=== PATIENT | female | born 1960 | race Caucasian/White ===

== ENCOUNTER → 2016-11-24 | Outpatient (CLI) | payer OTHER, MEDICAID ==
[2012-10-22 22:33] VITALS: BP 113/80
--- NOTE | 2016-11-25 11:49 | MG ---
HISTORY: SCREENING Comparison: November 18, 2011 and October 24, 2013 FINDINGS: Bilateral CC and MLO projections of the right and left breast were obtained. Heterogeneously dense fibroglandular tissue is seen to be present without suspicious interval change. No significant arch itectural distortion, mass or clustered microcalcifications can be observed to suggest malignancy. No skin thickening or nipple retraction is appreciated. No pathological lymphadenopathy can be chester ntified. IMPRESSION: NO RADIOGRAPHIC EVIDENCE OF MALIGNANCY. ACR CATEGORY I - NEGATIVE EXAM. FOLLOW-UP EXAM 1 YEAR. Diagnostic CAD was utilized and reviewed. * 0 (ZERO) - ASSESSMENT INCOMPLETE; ADDITIONAL IMAGING IS NEEDED. * / (ONE) - NEGATIVE. * 2/II (TWO) - BENIGN FINDINGS. * 3/III (THREE) - PROBABLY BENIGN FINDING; SHORT INTERVAL FOLLOW-UP SUGGESTED. * 4/IV (FOUR) - SUSPICIOUS ABNORMALITY; BIOPSY SHOULD BE CONSIDERED. * 5/V (FIVE) - HIGHLY SUSPICIOUS OF MALIGNANCY; BIOPSY SHOULD BE PERFORMED. A NEGATIVE X-RAY REPORT SHOULD NOT DELAY BIOPSY IF A DOMINANT OR CLINICALLY SUSPICIOUS MASS IS PRESENT; 4 TO 8 PERCENT OF CANCERS ARE NOT IDENTIFIED BY X-RAY. A NEG ATIVE REPORT MAY REINFORCE THE CLINICAL IMPRESSION. ADENOSIS AND DENSE BREASTS MAY OBSCURE AN UNDER LYING NEOPLASM. Reported By:
== END ==
LOC: RAD 13:54
PROVIDERS: ATTEND Specialist
DX: Z12.31 Encounter for screening mammogram for malignant neoplasm of breast (principal)
CPT/HCPCS: 77067

== ENCOUNTER 2019-09-12 18:02 | Observation (INO) ==
[2019-09-12] MEDS ORDERED: ZOFRAN INJ 4 MG VIAL IVP PRN (23:49)
[2019-09-12] MEDS ORDERED: NS 1000 ML 1,000 ML IV SCH (23:49)
[2019-09-13 00:09] LABS: BASOPHILS % (AUTO) 0.5 % (0.2-1.0); EOSINOPHILS % (AUTO) 0.1 % (0.9-2.9); HEMATOCRIT 41.9 % (36.0-47.0); MEAN CORPUSCULAR HEMOGLOBIN 30.1 pg (27.0-34.0); MEAN CORPUSCULAR HGB CONC 35.9 g/dL (33.0-35.0); MEAN PLATELET VOLUME 8.7 fL (7.4-11.0); MONOCYTES # (AUTO) 0.9 x10^3/uL (0.3-0.8); MONOCYTES % (AUTO) 13.1 % (0.0-13.0); NEUTROPHILS # (AUTO) 3.8 x10^3/uL (2.2-4.8); NEUTROPHILS % (AUTO) 56.3 % (42.0-75.0); PLATELET COUNT 242 X10^3/uL (150.0-450.0); RED BLOOD COUNT 4.98 X10^6/uL (3.5-5.4); RED CELL DISTRIBUTION WIDTH 13.6 % (11.6-16.5); WHITE BLOOD COUNT 6.8 X10^3/uL (3.6-10.0)
[2019-09-13 00:20] LABS: ALANINE AMINOTRANSFERASE 33 Units/L (12-78); ALBUMIN 3.6 g/dL (3.4-5.0); ALKALINE PHOSPHATASE 30 Units/L (46-116); ASPARTATE AMINO TRANSFERASE 28 Units/L (15-37); BLOOD UREA NITROGEN 7 mg/dL (7-18); CALCIUM 8.8 mg/dL (8.5-10.1); CARBON DIOXIDE 32.3 mmol/L (21-32); CHLORIDE 98 mmol/L (98-107); CREATININE 0.75 mg/dL (0.55-1.02); SODIUM 138 mmol/L (136-145); TOTAL PROTEIN 7.3 g/dL (6.4-8.2); eGFR NON BLACK RACES > 60 (>60)
[2019-09-13] MEDS ORDERED: POTASSIUM CHL 60 MEQ/NS 0.45% 500 ML IV PRN (00:47)
[2019-09-13] MEDS ORDERED: POTASSIUM CHLORIDE LIQ 20 MEQ UDC PO PRN (00:47)
[2019-09-13] MEDS ORDERED: MICRO K EXTEN CAP 10 MEQ PO PRN (00:47)
[2019-09-13] MEDS ORDERED: POTASSIUM CHL 40 MEQ/NS 0.45% 500 ML IV PRN (00:47)
[2019-09-13] MEDS: K-RIDER 10 MEQ/NS 100 ML 10 MEQ/100 ML BAG IV PRN ×6 (01:00→09:51)
[2019-09-13 01:55] VITALS: BMI 28.1
[2019-09-13] MEDS ORDERED: K-RIDER 10 MEQ/NS 100 ML 10 MEQ/100 ML BAG IV ONE (02:11)
[2019-09-13] MEDS ORDERED: NS + KCL 20 MEQ/L 1,000 ML IV ONE (02:20)
[2019-09-13] MEDS: NS + KCL 20 MEQ/L 1,000 ML IV SCH ×2 (02:50→16:35)
[2019-09-13 06:06] LABS: BILIRUBIN,URINE NEGATIVE (NEGATIVE); BLOOD/HEMOGLOBIN,URINE NEGATIVE (NEGATIVE); GLUCOSE, URINE NEGATIVE (NEGATIVE); KETONES,URINE 3+ (NEGATIVE); LEUKOCYTE ESTERASE ,URINE NEGATIVE (NEGATIVE); NITRITES,URINE NEGATIVE (NEGATIVE); PROTEIN,URINE NEGATIVE (NEGATIVE); UROBILINOGEN,URINE NORMAL (NORMAL)
[2019-09-13 06:06] LABS: BASOPHILS % (AUTO) 0.6 % (0.2-1.0); EOSINOPHILS % (AUTO) 0.2 % (0.9-2.9); HEMATOCRIT 37.7 % (36.0-47.0); HEMOGLOBIN 13.5 g/dL (12.0-16.0); LYMPHOCYTES # (AUTO) 1.9 X10^3/uL (1.3-2.9); LYMPHOCYTES % (AUTO) 38.3 % (21.0-51.0); MEAN CORPUSCULAR HEMOGLOBIN 30.2 pg (27.0-34.0); MEAN CORPUSCULAR HGB CONC 35.9 g/dL (33.0-35.0); MEAN CORPUSCULAR VOLUME 84.2 fL (80.0-100.0); MEAN PLATELET VOLUME 8.6 fL (7.4-11.0); MONOCYTES # (AUTO) 0.7 x10^3/uL (0.3-0.8); MONOCYTES % (AUTO) 13.8 % (0.0-13.0); NEUTROPHILS # (AUTO) 2.4 x10^3/uL (2.2-4.8); NEUTROPHILS % (AUTO) 47.1 % (42.0-75.0); PLATELET COUNT 196 X10^3/uL (150.0-450.0); RED BLOOD COUNT 4.48 X10^6/uL (3.5-5.4); RED CELL DISTRIBUTION WIDTH 13.6 % (11.6-16.5)
[2019-09-13 06:16] LABS: ALANINE AMINOTRANSFERASE 28 Units/L (12-78); ALBUMIN 3.1 g/dL (3.4-5.0); ALKALINE PHOSPHATASE 25 Units/L (46-116); ASPARTATE AMINO TRANSFERASE 26 Units/L (15-37); BLOOD UREA NITROGEN 5 mg/dL (7-18); CALCIUM 8.1 mg/dL (8.5-10.1); CHLORIDE 99 mmol/L (98-107); COR CA(FOR HYPOALB) 8.8 mg/dL (8.5-10.1); CREATININE 0.63 mg/dL (0.55-1.02); SODIUM 137 mmol/L (136-145); TOTAL PROTEIN 6.4 g/dL (6.4-8.2); eGFR NON BLACK RACES > 60 (>60)
[2019-09-13 06:50] LABS: APPEARANCE,URINE CLEAR (CLEAR); COLOR,URINE YELLOW (YELLOW)
[2019-09-13] MEDS: MAGNESIUM SULFATE 1 GRAM/100 mL PREMIX 1 GM/100 ML BAG IV PRN ×2 (08:18→09:31)
[2019-09-13] MEDS: LOVENOX INJ 40 MG SYR SC SCH (11:30)
--- NOTE | 2019-09-13 12:54 | US ---
HISTORYRUQ PAINSTUDYUltrasound of the gallbladderCOMPARISONCT scan of the abdomen and pelvis done 09/11/2019.TECHNIQUEGrayscale, duplex and color Doppler ultrasound of the right upper abdominal quadrant is provided.FINDINGSLiver is normal size with normal echogenicity. No hepatic mass or biliary ductal ectasia is seen. Color and duplex Doppler flow reveal hepatopetal portal venous flow. Color Doppler studies of hepatic artery are normal. Common bile duct is normal measuring 1.8 millimeters in diameter.The gallbladder is well seen. No evidence of gallstone, gallbladder wall thickening or pericholecystic fluid is seen.The right kidney is normal measuring 10.2 centimeters length. Cortical thickness is 1.65 centimeters. Resistive index is 0.58, which is normal.Normal pancreas.Normal IVCIMPRESSIONNormal gallbladder ultrasound.Electronically signed by: KARY GIBBONS (Sep 13, 2019 12:53:33)
--- NOTE | 2019-09-13 16:55 | DR.CONSULT ---
Consult - Consultation for Day of: Date: 09/13/19 - Chief Complaint Chief Complaint: Patient referred for nausea, vomiting and abdominal pain. Patient with cerbral palsy, caregiver states she has been holding her pper abdomen and vomiting. - History of Present Illness History of Present Illness: Patient is a 59 yo female who was referred for nausea, vomiting and abdominal pain. Patient with cerbral palsy, caregiver states she has been holding her upper abdomen and vomiting for 1 week, states that she had diarrhea yesterday with dark stool but has been taking peptobismol. Caregiver has not noticed her having any dysphagia, dyspepsia, constpiation or hematochezia. Patient has never had a colon or EGD. Gallbladder US negative, Abdomen and pelvis CT negative. Hgb 13.5, Hct 37.7, Plt 196, K 2.6, BUN 5, creatinine 0.63, T. Bili 0.6, AST 26, ALT 28, ALP 25. - Past Medical History Past Medical History: Hypertension - Past Surgical History Surgical History: Hysterectomy - Family History Family Medical History: Diabetes Mellitus, Cancer, [place], Coronary Artery Disease, Heart Failure, Sudden Cardiac , Hypertension - Social History Does patient currently use any type of tobacco product: No Have you used tobacco products in the last 12 months: No Type of Tobacco Use: None Alcohol Use: None Drug Use: None - Medications Home Medications: No Known Drug Allergies Allergy (Verified 09/11/19 14:53) CONTINUE taking the following medications atenolol-chlorthalidone [Tenoretic 50] 1 tab PO ONCE 09/13/19 [History] divalproex 500 mg PO DAILY 09/13/19 [History] esomeprazole magnesium 40 mg PO DAILY 09/13/19 [History] estradiol 2 mg PO DAILY 09/13/19 [History] levothyroxine 0.075 mcg PO DAILY 09/13/19 [History] meclizine 25 mg PO DAILY PRN 09/13/19 [History] montelukast 10 mg PO DAILY 09/13/19 [History] potassium chloride 10 meq PO DAILY 09/13/19 [History] - Review of Systems Gastrointestinal: Vomiting, Abdominal Pain (Epigastric). denies: Nausea, Diarrhea, Constipation, Melena, Hematochezia, Other - Physical Exam Vital Signs: Temperature 98.2 F Pulse Rate [Radial] 70 Respiratory Rate 16 Blood Pressure [Right Arm] 126/59 Blood Pressure [Left Arm] 122/79 O2 Sat by Pulse Oximetry 99 Oriented: Normal Eyes: Normal Ear: Normal Nose: Normal Throat: Normal Respiratory: Clear Throughout Cardiovascular: Normal Auscultation: Bowel Sounds: Normal Palpation: Normal, Other (no distended). negative: Spleen Enlarged, Liver Enlarged, Mass Pulsatile Tenderness: Epigastric Skin: Normal Musculoskeletal: Normal Psychiatric: Normal Mood Description: Calm Affect: Normal Speech Pattern: Clear, Appropriate - Plan Plan: Assessment. 1. epigastric pain, vomiting. Plan. 1. EGD on , Protonix IV, Zofran PRN. Plan reviewed with Dr. Peraza - Allergies Allergies/Adverse Reactions: Allergies Allergy/AdvReac Type Severity Reaction Status Date / Time No Known Drug Allergies Allergy Verified 09/11/19 14:53
[2019-09-13] MEDS: LEVSIN/MAALOX/LIDOC VISC PO PRN ×2 (18:33→22:00)
--- NOTE | 2019-09-13 21:16 | DR.H&P ---
H&P - History & Physical for Day of: H&P Date: 09/12/19 - Chief Complaint Chief Complaint: RUQ PAIN, NAUSEA AND VOMITING - History of Present Illness History of Present Illness: IS A 59 YEAR OLD PATIENT OF OURS WHO PRESENTED TO THE HOSPITAL A DIRECT ADMISSION DUE TO COMPLAINTS OF RUQ PAIN AND INTRACTABLE NAUSEA AND VOMITING. SYMPTOMS STARTED ON WEEK AGO AND HAVE PROGRESSIVELY GOTTEN WORSE. PMH INCLUDES CEREBRAL PALSY, HTN, HYPOTHYROIDISM, DEPRESSION, AND INTELLECTUAL DISABILITIES. ON ARRIVAL TO THE HOSPITAL, VITALS WERE 97.5-81-20-97%-119/76. LABS WERE OBTAINED. ABNORMAL LAB VALUES INCLUDE THE FOLLOWING: POTASSIUM 2.3, CARBON DIOXIDE 32.3, GLUCOSE 107, MAGNESIUM 1.6, ALK PHOS 30. A URINALYSIS WAS OBTAINED AND IS UNREMARKABLE. A GALLBLADDER US WAS OBTAINED AND IS NORMAL. WE PLAN TO OBTAIN A HIDA SCAN TODAY. SHE WAS STARTED ON NS WITH 20MEQ KCL AT 80 ML/HR, THE POTASSIUM AND MAGNESIUM PROTOCOLS, LOVENOX 40MG SC DAILY, GI COCKTAIL, ZOFRAN 4MG IV Q4H PRN, AND PROTONIX 40MG IV BID. WE WILL CONTINUE WITH [facility] PLAN OF CARE TODAY. OTHERWISE, WE WILL FOLLOW UP WITH AM LABS AND CONTINUE TO MONITOR. - Past Medical History Past Medical History: Hypertension - Past Surgical History Surgical History: Hysterectomy - Family History Family Medical History: Diabetes Mellitus, Cancer, [place], Coronary Artery Disease, Heart Failure, Sudden Cardiac , Hypertension - Social History Does patient currently use any type of tobacco product: No Have you used tobacco products in the last 12 months: No Type of Tobacco Use: None Alcohol Use: None Drug Use: None - Medications Home Medications: No Known Drug Allergies Allergy (Verified 09/11/19 14:53) CONTINUE taking the following medications atenolol-chlorthalidone [Tenoretic 50] 1 tab PO ONCE 09/13/19 [History] divalproex 500 mg PO DAILY 09/13/19 [History] esomeprazole magnesium 40 mg PO DAILY 09/13/19 [History] estradiol 2 mg PO DAILY 09/13/19 [History] levothyroxine 0.075 mcg PO DAILY 09/13/19 [History] meclizine 25 mg PO DAILY PRN 09/13/19 [History] montelukast 10 mg PO DAILY 09/13/19 [History] potassium chloride 10 meq PO DAILY 09/13/19 [History] - Review of Systems Constitutional: Weakness Eyes: No Symptoms Reported ENT: No Symptoms Reported Respiratory: No Symptoms Reported Cardiovascular: No Symptoms Reported Gastrointestinal: See HPI, Nausea, Vomiting, Abdominal Pain Genitourinary: No Symptoms Reported Musculoskeletal: No Symptoms Reported Skin: No Symptoms Reported Neurological: See HPI, Weakness - Physical Exam Vital Signs: Temperature 97.5 F Pulse Rate [Radial] 85 Respiratory Rate 16 Blood Pressure [Right Arm] 110/65 Blood Pressure [Left Arm] 122/79 O2 Sat by Pulse Oximetry 97 Oriented: Person Eyes: Normal Ear: Normal Nose: Normal Throat: Normal Respiratory: Diminished Throughout Cardiovascular: Normal. negative: S3, S4, Murmur, Edema : Normal Auscultation: Bowel Sounds: Normal Palpation: Normal Tenderness: RUQ, Moderate. negative: Rebound, Guarding, Rigidity Skin: Normal Musculoskeletal: Normal Psychiatric: Normal Mood Description: Calm Affect: Normal Speech Pattern: Clear - Assessment/Plan (1) RUQ abdominal pain Status: Acute Plan: ADMIT, NS WITH 20MEQ KCL AT 80 ML/HR, THE POTASSIUM AND MAGNESIUM PROTOCOLS, LOVENOX 40MG SC DAILY, GI COCKTAIL, ZOFRAN 4MG IV Q4H PRN, AND PROTONIX 40MG IV BID, OBTAIN HIDA SCAN (2) Nausea and vomiting in adult patient Status: Acute - Allergies Allergies/Adverse Reactions: Allergies Allergy/AdvReac Type Severity Reaction Status Date / Time No Known Drug Allergies Allergy Verified 09/11/19 14:53
[2019-09-13] MEDS: PROTONIX INJ 40 MG VIAL IVP SCH (21:59)
[2019-09-13] MEDS: KLOR-CON PO PRN (23:55)
[2019-09-14] MEDS: NS + KCL 20 MEQ/L 1,000 ML IV SCH ×3 (04:41→20:30)
[2019-09-14 06:07] LABS: ALANINE AMINOTRANSFERASE 32 Units/L (12-78); ALBUMIN 2.9 g/dL (3.4-5.0); ALKALINE PHOSPHATASE 38 Units/L (46-116); ASPARTATE AMINO TRANSFERASE 27 Units/L (15-37); BLOOD UREA NITROGEN 2 mg/dL (7-18); CALCIUM 7.9 mg/dL (8.5-10.1); CARBON DIOXIDE 30.2 mmol/L (21-32); CHLORIDE 103 mmol/L (98-107); COR CA(FOR HYPOALB) 8.8 mg/dL (8.5-10.1); CREATININE 0.54 mg/dL (0.55-1.02); MAGNESIUM 1.5 mg/dL (1.7-2.9); SODIUM 138 mmol/L (136-145); TOTAL PROTEIN 6.1 g/dL (6.4-8.2); eGFR NON BLACK RACES > 60 (>60)
[2019-09-14 06:11] LABS: BASOPHILS % (AUTO) 0.8 % (0.2-1.0); EOSINOPHILS % (AUTO) 0.2 % (0.9-2.9); HEMATOCRIT 37.4 % (36.0-47.0); HEMOGLOBIN 13.4 g/dL (12.0-16.0); LYMPHOCYTES # (AUTO) 1.6 X10^3/uL (1.3-2.9); LYMPHOCYTES % (AUTO) 36.4 % (21.0-51.0); MEAN CORPUSCULAR HEMOGLOBIN 30.3 pg (27.0-34.0); MEAN CORPUSCULAR HGB CONC 35.9 g/dL (33.0-35.0); MEAN CORPUSCULAR VOLUME 84.5 fL (80.0-100.0); MEAN PLATELET VOLUME 8.5 fL (7.4-11.0); MONOCYTES # (AUTO) 0.5 x10^3/uL (0.3-0.8); MONOCYTES % (AUTO) 10.5 % (0.0-13.0); NEUTROPHILS # (AUTO) 2.3 x10^3/uL (2.2-4.8); NEUTROPHILS % (AUTO) 52.1 % (42.0-75.0); PLATELET COUNT 189 X10^3/uL (150.0-450.0); RED BLOOD COUNT 4.43 X10^6/uL (3.5-5.4); RED CELL DISTRIBUTION WIDTH 13.7 % (11.6-16.5); WHITE BLOOD COUNT 4.4 X10^3/uL (3.6-10.0)
[2019-09-14] MEDS: PROTONIX INJ 40 MG VIAL IVP SCH ×2 (09:50→21:36)
--- NOTE | 2019-09-14 14:51 | NM ---
HISTORYRight upper quadrant pain, nausea, vomitingSTUDYHIDA/HEPATOBILIARY SCAN W/EFTechnique: Patient received intravenous injection of 5.4 millicuries technetium 99 M Choletec. Sequential images of the right upper quadrant were obtained. The patient then received a fatty meal. The right upper quadrant was imaged and a time activity curve plotted.COMPARISONNoneFINDINGSThere is good visualization of the hepatic parenchyma, gallbladder, biliary tree and free passage of tracer into the duodenum. Gallbladder ejection fraction was 0 percent at 30 minutes which is low (normal greater than 35 percent )IMPRESSIONNormal biliary scanLow gallbladder ejection fraction at 30 minute 0 percentElectronically signed by: JOVI DOWELL (Sep 14, 2019 14:49:21)
[2019-09-14] MEDS: LOVENOX INJ 40 MG SYR SC SCH (15:00)
[2019-09-14] MEDS: K-DUR TAB 20 MEQ PO PRN ×2 (15:12→18:35)
[2019-09-14 17:10] LABS: CRYPTOSPORIDIUM PARVUM ANTIGEN NEGATIVE (NEGATIVE); GIARDIA LAMBLIA ANTIGEN NEGATIVE (NEGATIVE)
[2019-09-14] MEDS ORDERED: ANTIVERT TAB 25 MG PO PRN (19:11)
[2019-09-14] MEDS ORDERED: AMBIEN PO PRN (20:46)
[2019-09-14] MEDS: DEPAKOTE ER PO SCH (21:35)
[2019-09-14] MEDS: MAGNESIUM SULFATE 1 GRAM/100 mL PREMIX 1 GM/100 ML BAG IV PRN ×2 (21:39→22:00)
[2019-09-14] MEDS: KLOR-CON PO PRN ×2 (21:39→21:40)
[2019-09-14] MEDS ORDERED: RESTORIL CAP 15 MG PO ONE (21:43)
[2019-09-15] MEDS ORDERED: SYNTHROID 75 mcg TAB PO SCH (06:00)
[2019-09-15 06:07] LABS: BASOPHILS % (AUTO) 0.7 % (0.2-1.0); EOSINOPHILS % (AUTO) 0.4 % (0.9-2.9); HEMATOCRIT 36.4 % (36.0-47.0); HEMOGLOBIN 12.9 g/dL (12.0-16.0); LYMPHOCYTES # (AUTO) 1.9 X10^3/uL (1.3-2.9); LYMPHOCYTES % (AUTO) 45.2 % (21.0-51.0); MEAN CORPUSCULAR HEMOGLOBIN 30.3 pg (27.0-34.0); MEAN CORPUSCULAR HGB CONC 35.4 g/dL (33.0-35.0); MEAN CORPUSCULAR VOLUME 85.6 fL (80.0-100.0); MEAN PLATELET VOLUME 8.5 fL (7.4-11.0); MONOCYTES # (AUTO) 0.5 x10^3/uL (0.3-0.8); MONOCYTES % (AUTO) 10.8 % (0.0-13.0); NEUTROPHILS # (AUTO) 1.8 x10^3/uL (2.2-4.8); NEUTROPHILS % (AUTO) 42.9 % (42.0-75.0); PLATELET COUNT 181 X10^3/uL (150.0-450.0); RED BLOOD COUNT 4.25 X10^6/uL (3.5-5.4); RED CELL DISTRIBUTION WIDTH 13.8 % (11.6-16.5); WHITE BLOOD COUNT 4.2 X10^3/uL (3.6-10.0)
[2019-09-15 06:23] LABS: ALANINE AMINOTRANSFERASE 24 Units/L (12-78); ALBUMIN 2.8 g/dL (3.4-5.0); ALKALINE PHOSPHATASE 36 Units/L (46-116); ASPARTATE AMINO TRANSFERASE 19 Units/L (15-37); BLOOD UREA NITROGEN 1 mg/dL (7-18); CALCIUM 8.1 mg/dL (8.5-10.1); CARBON DIOXIDE 27.9 mmol/L (21-32); CHLORIDE 106 mmol/L (98-107); COR CA(FOR HYPOALB) 9.1 mg/dL (8.5-10.1); CREATININE 0.54 mg/dL (0.55-1.02); MAGNESIUM 1.7 mg/dL (1.7-2.9); SODIUM 138 mmol/L (136-145); TOTAL PROTEIN 5.9 g/dL (6.4-8.2); eGFR NON BLACK RACES > 60 (>60)
[2019-09-15] MEDS ORDERED: DIPRIVAN VIAL 20 ML ONE (08:53)
[2019-09-15] MEDS ORDERED: NexIUM PO SCH (09:00)
[2019-09-15] MEDS ORDERED: MICRO K EXTEN CAP 10 MEQ PO SCH (09:00)
[2019-09-15] MEDS ORDERED: SINGULAIR TAB 10 MG PO SCH (09:00)
[2019-09-15] MEDS ORDERED: ESTRACE PO SCH (09:00)
[2019-09-15] MEDS: NS + KCL 20 MEQ/L 1,000 ML IV SCH (09:22)
[2019-09-15] MEDS: DEPAKOTE ER PO SCH (10:10)
[2019-09-15] MEDS: LOVENOX INJ 40 MG SYR SC SCH (10:11)
[2019-09-15] MEDS: MAGNESIUM SULFATE 1 GRAM/100 mL PREMIX 1 GM/100 ML BAG IV PRN ×2 (10:13→11:27)
[2019-09-15] MEDS: PROTONIX INJ 40 MG VIAL IVP SCH (10:13)
[2019-09-15] MEDS ORDERED: STERILE WATER IRRIGATION IR ONE (10:27)
[2019-09-15 12:19] VITALS: BP 132/70
== END 2019-09-15 13:45 | disposition home or self-care (01) ==
LOC: OBS
PROVIDERS: ADMIT Internal Medicine; ATTEND Internal Medicine
DX: E87.6 Hypokalemia; R10.13 Epigastric pain; K20.9 Esophagitis, unspecified; R10.11 Right upper quadrant pain; K29.70 Gastritis, unspecified, without bleeding; R11.2 Nausea with vomiting, unspecified; B96.81 Helicobacter pylori [H. pylori] as the cause of diseases classified elsewhere; K44.9 Diaphragmatic hernia without obstruction or gangrene
CPT/HCPCS: 36415; 76705; 78227; 80053; 81003; 82270; 83630; 83735; 84132; 85025; 87045; 87328; 87329; 87338; 87427; 87449; 87493; 87899; 96360; 96361; 96372; A4216; A4217; A4222; C9113; G0378; J1650; J2704; J3475; J3480; J7030